=== PATIENT | female | born 1950 | race Caucasian/White ===

== ENCOUNTER 2018-06-19 08:00 | Inpatient (IN) | payer MEDICARE, OTHER ==
[2018-06-19 08:56] VITALS: BMI 32.4
--- NOTE | 2018-06-29 20:55 | HP ---
HISTORY OF PRESENT ILLNESS: The patient is a 68-year-old female with a long history of progressive d egenerative arthritis of both knees, left symptomatic more than right. She has had symptoms for 30 y ears, which have progressively gotten worse and now interfering with day-to-day activities. She has had progressive symptoms despite rest, restriction of activities, lifestyle adjustments, and previous cortisone injections, which were performed in [place] which provided minimal relief. She cannot ta ke NSAIDs due to gastric ulcers. Pain is now interfering with day-to-day activities including walkin g, getting dressed, and sleeping. PAST MEDICAL HISTORY: As noted above, the patient has history of peptic ulcers; pancreatic cyst; hyp othyroidism; supraventricular tachycardia, status post ablation in 2017; uterine prolapse; and hiatal hernia. CURRENT MEDICATIONS: Include levothyroxine, Ambien, Lipitor, Protonix, amitriptyline, valacyclovir, multivitamins, fish oil, gabapentin. ALLERGIES: She has no known allergies. FAMILY HISTORY: Otherwise, unremarkable. SOCIAL HISTORY: Otherwise, unremarkable. REVIEW OF SYSTEMS: Otherwise, unremarkable. PHYSICAL EXAMINATION: GENERAL: Reveals a healthy female. HEENT: Unremarkable. NECK: Supple. CHEST: Clear. HEART: Regular rate and rhythm. ABDOMEN: Soft, nontender. PELVIC: Deferred. RECTAL: Deferred. BREASTS: Deferred. EXTREMITIES: Pertinent findings related to her knees: There is mild valgus deformity bilaterally. There is no definite effusion. There is tenderness over the medial and lateral joint lines bilateral ly, left greater than right. There is crepitus with range of motion. Range of motion 0-135 degrees. There is no definite instability. Distal pulses are 1+. There is an antalgic gait. Neurovascular exam is intact. IMAGING: X-rays of both knees reveal [id number] collapse laterally on the left posterior loose bod ies. There are changes more advanced on the left knee. IMPRESSION: 1. Degenerative arthritis, both knees, left symptomatic more than right. 2. History of hypothyroidism. 3. Status post cardiac ablation. 4. History of peptic ulcer disease. PLAN: Left total knee replacement. She may eventually require staged right total knee replacement. The nature of the surgery, length of recovery, and potential complication such as infection, loss of motion, incomplete relief, delayed healing, neurovascular injury, thromboembolic phenomenon, possibl e transfusion, and need for revision have been discussed in detail.
[2018-06-30] MEDS ORDERED: CEFAZOLIN/Water 2 GM/20 ML SYRINGE ONE (07:45)
[2018-06-30] MEDS ORDERED: Vancomycin HCl 1.5 GM in Sodium Chloride 0.9% 250 ML 300 ML IVPB SCH ×2 (08:00→20:00)
[2018-06-30] MEDS ORDERED: Midazolam HCl 2 mg/2 ml Vial ONE (08:02)
[2018-06-30] MEDS ORDERED: Fentanyl 100 MCG/2 ML VIAL ONE ×3 (08:02→12:06)
[2018-06-30] MEDS ORDERED: traMADol HCl 50 MG TAB PO PRN ×2 (08:37→12:45)
[2018-06-30] MEDS ORDERED: Ketorolac Tromethamine 30 MG/ML VIAL IVP PRN (08:37)
[2018-06-30] MEDS ORDERED: HYDROcodone/Acetaminophen 10/325 mg Tablet PO PRN ×3 (08:37→12:45)
[2018-06-30] MEDS ORDERED: Fentanyl 100 MCG/2 ML VIAL IV PRN (08:37)
[2018-06-30] MEDS ORDERED: Ondansetron HCl/PF 4 MG/2 ML Vial IVP PRN ×3 (08:37→12:45)
[2018-06-30] MEDS ORDERED: Ropivacaine HCl/PF 250 ML in Premix Bag 1 BAG NERVE BLCK SCH (08:37)
[2018-06-30] MEDS ORDERED: Promethazine HCl 25 MG/ML VIAL IM PRN ×2 (08:37→10:32)
[2018-06-30] MEDS ORDERED: Bupivacaine/Epinephrine 0.25% 30 ML VIAL ONE (09:20)
[2018-06-30] MEDS ORDERED: Promethazine HCl 25 MG/ML VIAL SLOW IVP PRN ×2 (10:32→12:45)
[2018-06-30] MEDS ORDERED: Tranexamic Acid 1,000 MG in Sodium Chloride 0.9% 100 ML IVPB SCH ×2 (11:30→12:45)
[2018-06-30] MEDS ORDERED: Ropivacaine 0.2% HCl/PF (40 MG/20 ML VIAL) ONE (11:44)
[2018-06-30] MEDS ORDERED: Ropivacaine 0.5% HCl/PF (150 MG/30 ML VIAL) ONE (11:44)
[2018-06-30] MEDS ORDERED: Ondansetron HCl/PF 4 MG/2 ML Vial ONE (11:59)
[2018-06-30] MEDS ORDERED: ePHEDrine/0.9% NaCl/PF SYRINGE 50 mg/10 ml ONE (11:59)
[2018-06-30] MEDS ORDERED: PROPOFOL 200 MG/20 ML VIAL ONE (11:59)
[2018-06-30] MEDS ORDERED: Ketorolac Tromethamine 30 MG/ML VIAL ONE (11:59)
[2018-06-30] MEDS ORDERED: Lidocaine 1% PF 5 ML VIAL ONE (11:59)
[2018-06-30] MEDS ORDERED: Acetaminophen 1,000 MG in Premix Bag 1 BAG IVPB SCH (12:15)
--- NOTE | 2018-06-30 12:42 | OP ---
DATE OF PROCEDURE: 06/30/2018 SURGEON: Cesar Mills M.D. NEON SIGN MECHANIC: MOSES Jaramillo. ANESTHESIA: General plus adductor canal and sciatic nerve blocks. PREOPERATIVE DIAGNOSIS: Degenerative arthritis, left knee. POSTOPERATIVE DIAGNOSIS: Degenerative arthritis, left knee. PROCEDURES: Left total knee replacement with computer-assisted navigation with cemented Scottie Tria thlon components (#4 femoral component, #4 universal tibial baseplate with 9 mm CS plastic insert, an d A29 all plastic patellar component). NARRATIVE REPORT: After satisfactory anesthesia was induced in the supine position, sequential compr ession device was placed on the non-operative leg throughout the procedure. Left leg was then preppe d and draped in routine sterile fashion. Leg was elevated, exsanguinated with an Esmarch bandage, an d the tourniquet inflated to 300 mmHg. A gently curved medial parapatellar incision was made and car ried down to subcutaneous tissues. Bleeding points controlled with Bovie cautery. Medial parapatell ar arthrotomy was performed and portions of the fat pad were excised for exposure and the patella dis located laterally. There was marked degenerative arthritis of the knee, especially laterally with la rge areas of exposed bone. Meniscal remnants and osteophytes were removed. Using the appropriate gu ides and the Scottie pinless navigation system, the distal femoral and proximal tibial articular surf aces were excised with an oscillating saw to accept the trial components. The popliteus tendon was r eleased and portion of the IT band pie crusted to release the tight lateral structures, because of th e valgus deformity. There was good range of motion, good fit, and stability components. The patella r articular surface was excised to accept an all plastic A29 patellar component. There was good rang e of motion and good patellar tracking. The trial components were removed. The knee was copiously i rrigated with pulsatile lavage and the bony surfaces thoroughly cleaned and dried. The permanent com ponents were then cemented in a single stage using 1 package of cement premixed with 1 gram of tobram ycin powder. Excess cement was removed and there was again good fit and stability of the components. The knee was then copiously irrigated. The skin was injected with 30 mL of 0.25% Marcaine with epi nephrine. The medial retinaculum and quadriceps mechanism was closed with interrupted #2 Vicryl and a running #2 Quill. Subcutaneous tissues were closed with running 0 Quill suture and the skin closed with a running subcuticular 3-0 Monoderm and SurgiSeal skin adhesive. A sterile bulky compressive d ressing was applied. The tourniquet deflated after 73 minutes. The foot promptly pinked up. Sequen tial compression device was applied to her operated leg and she was awakened, taken to recovery room in stable condition. There were no apparent intraoperative complications. The estimated blood loss was less than 100 mL.
[2018-06-30] MEDS ORDERED: diphenhydrAMINE 25 MG CAP PO PRN (12:45)
[2018-06-30] MEDS ORDERED: Acetaminophen 325 MG TAB PO PRN (12:45)
[2018-06-30] MEDS ORDERED: Zolpidem Tartrate 5 MG TAB PO PRN (12:45)
[2018-06-30] MEDS ORDERED: Fentanyl 100 MCG/2 ML VIAL SLOW IVP PRN ×2 (12:45)
--- NOTE | 2018-06-30 13:46 | RAD ---
RADIOGRAPH LEFT KNEE TWO VIEWS: DATE: 06-30-18 TIME: 11:42 A.M. HISTORY: 68-year-old female with left knee pain. Status post-surgery. COMPARISON: None. FINDINGS: Resurfacing changes of the articular surfaces of the patella, distal femur, and tibial plateau. Metal lic prostheses cover the distal femur and tibial plateau. Subcutaneous emphysema anteriorly plus join t fluid. IMPRESSION: Very recently status post left total knee replacement arthroplasty. POS: [facility]
[2018-06-30] MEDS: Ketorolac Tromethamine 30 MG/ML VIAL IM SCH ×2 (14:24→23:00)
[2018-06-30] MEDS: Sodium Chloride 0.9% 1,000 ML IV SCH ×2 (14:30→20:29)
[2018-06-30] MEDS: CEFAZOLIN/Water 2 GM/20 ML SYRINGE SLOW IVP SCH (17:58)
--- NOTE | 2018-06-30 18:10 | PDOC.PN ---
- Subjective Encounter Start Date: 06/30/18 Encounter Start Time: 14:40 Pt seen for management of medical comorbidities including dyslipidemia. Denies chest pain, shortness of breath, fevers or chills. No nausea or vomiting. - Objective MAR Reviewed: Yes Vital Signs & Weight: Vital Signs (12 hours) Temp Pulse Resp BP Pulse Ox 06/30/18 12:50 97.5 F L 69 20 143/81 H 100 Weight Weight 207 lb Additional Labs: Labs reviewed by me Phys Exam - Physical Examination Obese HEENT: moist MMs Neck: supple Respiratory: clear to auscultation bilateral Cardiovascular: RRR Gastrointestinal: soft s/p left knee surgery Neurological: moves all 4 limbs Psychiatric: normal affect Dx/Plan (1) Dyslipidemia Code(s): E78.5 - HYPERLIPIDEMIA, UNSPECIFIED Status: Chronic Comment: continue statin (2) Hypothyroidism Code(s): E03.9 - HYPOTHYROIDISM, UNSPECIFIED Status: Chronic Comment: continue synthroid (3) Insomnia Code(s): G47.00 - INSOMNIA, UNSPECIFIED Status: Chronic Comment: Pt is on melatonin and PRN Ambien (4) Arthritis Code(s): M19.90 - UNSPECIFIED OSTEOARTHRITIS, UNSPECIFIED SITE Status: Chronic Comment: s/p left knee surgery - Plan PT/OT * . DVT prophylaxis and pain management per primary service. Add PRN IV hydralazine for blood pressure spikes. Review of Systems - Review of Systems Respiratory: negative: Cough, Shortness of Breath, Hemoptysis, SOB with Excertion, Pleuritic Pain, Wheezing Cardiovascular: negative: chest pain, palpitations, orthopnea, paroxysmal nocturnal dyspnea, edema, light headedness - Medications/Allergies Allergies/Adverse Reactions: Allergies Allergy/AdvReac Type Severity Reaction Status Date / Time No Known Allergies Allergy Verified 06/19/18 08:56 Medications: Current Medications Acetaminophen (Tylenol) 650 mg PO Q4H PRN PRN Reason: BERTRAND/ T > 101F; Mild Pain (1-3) Hydrocodone Bitart/Acetaminophen ([place] 10/325) 1 tab PO Q4H PRN PRN Reason: Pain (1-3) Hydrocodone Bitart/Acetaminophen ([place] 10/325) 2 tab PO Q4H PRN PRN Reason: PAIN (4-6) Aspirin (Ecotrin) 81 mg PO BID [facility] Atorvastatin Calcium (Lipitor) 40 mg PO DAILY [facility] Cefazolin Sodium (Ancef) 2 gm SLOW IVP 0200,1000,1800 [facility] Stop: 07/01/18 02:01 Last Admin: 06/30/18 17:58 Dose: 2 gm Diphenhydramine HCl (Benadryl) 25 mg PO Q6H PRN PRN Reason: Itching Fentanyl (Sublimaze) 50 mcg IV Q1H PRN PRN Reason: BREAKTHRU PAIN Ferrous Gluconate (Fergon) 324 mg PO BID [facility] Fish Oil (Fish Oil) 1,000 mg PO DAILY [facility] Vancomycin HCl 1.5 gm/ Sodium (Chloride) 300 mls @ 200 mls/hr IVPB ONCALL-OR [facility] Ropivacaine 250 ml/ Device 250 mls @ 10 mls/hr NERVE BLCK INF [facility] Sodium Chloride (Normal Saline 0.9%) 1,000 mls @ 100 mls/hr IV .Q10H [facility] Last Admin: 06/30/18 14:30 Dose: Not Given Vancomycin HCl 1.5 gm/ Sodium (Chloride) 300 mls @ 200 mls/hr IVPB 1999 [facility] Stop: 06/30/18 21:29 Iron/Minerals/Multivitamins (Theragran M) 1 tab PO DAILY [facility] Ketorolac Tromethamine (Toradol) 15 mg IM Q8HR [facility] Stop: 07/02/18 14:01 Last Admin: 06/30/18 14:24 Dose: 15 mg Levothyroxine Sodium (Synthroid) 75 mcg PO 0600 [facility] Melatonin (Melatonin) 9 mg PO HS [facility] Ondansetron HCl (Zofran) 4 mg IVP Q6H PRN PRN Reason: Nausea/Vomiting Glucosam/Chondr-Msm1 (/D3/C/Antonio) 0 each PO DAILY [facility] Promethazine HCl (Phenergan) 12.5 mg IM Q4H PRN PRN Reason: Nausea Promethazine HCl (Phenergan) 12.5 mg SLOW IVP Q4H PRN PRN Reason: Nausea/Vomiting Senna/Docusate Sodium (Senokot S) 2 tab PO BID [facility] Sodium Chloride (Flush - Normal Saline) 10 ml IVF PRN PRN PRN Reason: Saline Flush Tramadol HCl (Ultram) 50 mg PO Q6H PRN PRN Reason: Mild Pain (1-3) Tramadol HCl (Ultram) 100 mg PO Q6H PRN PRN Reason: Moderate Pain 4-6 Zolpidem Tartrate (Ambien) 5 mg PO HSPRN PRN PRN Reason: Insomnia
[2018-06-30] MEDS ORDERED: hydrALAZINE 20 MG/ML VIAL SLOW IVP PRN (18:15)
[2018-06-30] MEDS: HYDROcodone/Acetaminophen 10/325 mg Tablet PO PRN (19:02)
[2018-06-30] MEDS: Aspirin 81 mg Enteric Coated Tablet PO SCH (20:35)
[2018-06-30] MEDS: Melatonin 3 MG TAB PO SCH (20:40)
[2018-06-30] MEDS: Zolpidem Tartrate 5 MG TAB PO PRN (21:50)
[2018-07-01] MEDS: CEFAZOLIN/Water 2 GM/20 ML SYRINGE SLOW IVP SCH (01:13)
[2018-07-01] MEDS: HYDROcodone/Acetaminophen 10/325 mg Tablet PO PRN ×5 (01:14→21:07)
[2018-07-01] MEDS: Ketorolac Tromethamine 30 MG/ML VIAL IM SCH ×3 (05:26→21:08)
[2018-07-01] MEDS: Levothyroxine Sodium 75 MCG TAB PO SCH (05:26)
[2018-07-01 05:32] LABS: Hemoglobin 10.2 g/dL (12.0-16.0); Mean Corpuscular Hemoglobin 28.6 pg (27.0-31.0); Mean Corpuscular Volume 89.4 fL (78.0-98.0); Mean Platelet Volume 8.3 fL (7.4-10.4); Platelet Count 158 thou/uL (130-400); RBC Distribution Width 14.6 % (11.5-14.5); Red Blood Cell (RBC) Count 3.56 mill/uL (4.20-5.40); White Blood Cell (WBC) Count 6.4 thou/uL (4.8-10.8)
[2018-07-01] MEDS: Sodium Chloride 0.9% 1,000 ML IV SCH ×2 (08:43→18:20)
[2018-07-01] MEDS: Aspirin 81 mg Enteric Coated Tablet PO SCH ×2 (08:43→21:06)
[2018-07-01] MEDS: Ferrous Gluconate 324 MG TAB PO SCH ×2 (08:44→21:06)
[2018-07-01] MEDS: Atorvastatin Calcium 40 MG TAB PO SCH (08:44)
[2018-07-01] MEDS: Senokot S 8.6-50 MG TAB PO SCH ×2 (08:44→21:06)
[2018-07-01] MEDS: Fish Oil 1,000 MG CAP PO SCH (08:44)
[2018-07-01] MEDS: Multivitamin W/ Minerals 1 TAB PO SCH (08:45)
[2018-07-01] MEDS ORDERED: Glucosam/Chondr-Msm1/D3/C/Mang PO SCH (09:00)
[2018-07-01 13:38] LABS: Bilirubin Negative (Negative); Blood, Urine Moderate (Negative); Clarity CLEAR (Clear); Glucose, Urine (Dipstick) Negative (Negative); Leukocyte Negative (Negative); Nitrite Negative (Negative); Protein, Urine (Dipstick) Trace mg/dL (Neg-Trace); Specific Gravity, Urine 1.023 (1.002-1.036); Urobilinogen 0.2 mg/dL (0.2-1.0); pH, Urine 5.5 (5.0-9.0)
--- NOTE | 2018-07-01 14:52 | PDOC.PN ---
- Subjective Encounter Start Date: 07/01/18 Encounter Start Time: 09:20 Pt seen for followup re: dyslipidemia. Reports suprapubic discomfort. Did not sleep well. - Objective Vital Signs & Weight: Vital Signs (12 hours) Temp Pulse Resp BP Pulse Ox 07/01/18 12:00 97.8 F 68 18 128/81 100 07/01/18 08:00 98.4 F 71 16 108/69 96 07/01/18 04:00 98.5 F 74 16 122/73 95 Weight Admit Weight 207 lb Weight 207 lb I&O: 06/30/18 07/01/18 07/02/18 06:59 06:59 06:59 Intake Total 320 2280 Output Total 1100 Balance 320 1180 Result Diagrams: 07/01/18 05:12 Additional Labs: labs reviewed by me Phys Exam - Physical Examination Constitutional: NAD HEENT: moist MMs Neck: supple Respiratory: clear to auscultation bilateral Cardiovascular: RRR Gastrointestinal: soft, non-tender, positive bowel sounds Neurological: moves all 4 limbs Psychiatric: normal affect Dx/Plan (1) Dyslipidemia Code(s): E78.5 - HYPERLIPIDEMIA, UNSPECIFIED Status: Chronic Comment: on statin (2) Hypothyroidism Code(s): E03.9 - HYPOTHYROIDISM, UNSPECIFIED Status: Chronic Comment: on synthroid (3) Insomnia Code(s): G47.00 - INSOMNIA, UNSPECIFIED Status: Chronic Comment: continue melatonin and PRN Ambien (4) Arthritis Code(s): M19.90 - UNSPECIFIED OSTEOARTHRITIS, UNSPECIFIED SITE Status: Chronic Comment: s/p left knee surgery - Plan * . arreola catheter appears to be draining well. Check urinalysis to rule out UTI. Review of Systems - Review of Systems Respiratory: negative: Cough, Shortness of Breath, SOB with Excertion, Pleuritic Pain, Wheezing Cardiovascular: negative: chest pain, palpitations, orthopnea, paroxysmal nocturnal dyspnea, edema, light headedness Gastrointestinal: Abdominal Pain - Medications/Allergies Allergies/Adverse Reactions: Allergies Allergy/AdvReac Type Severity Reaction Status Date / Time No Known Allergies Allergy Verified 06/19/18 08:56 Medications: Current Medications Acetaminophen (Tylenol) 650 mg PO Q4H PRN PRN Reason: BERTRAND/ T > 101F; Mild Pain (1-3) Hydrocodone Bitart/Acetaminophen ([place] 10/325) 1 tab PO Q4H PRN PRN Reason: Pain (1-3) Hydrocodone Bitart/Acetaminophen ([place] 10/325) 2 tab PO Q4H PRN PRN Reason: PAIN (4-6) Last Admin: 07/01/18 10:09 Dose: 2 tab Aspirin (Ecotrin) 81 mg PO BID [facility] Last Admin: 07/01/18 08:43 Dose: 81 mg Atorvastatin Calcium (Lipitor) 40 mg PO DAILY [facility] Last Admin: 07/01/18 08:44 Dose: 40 mg Diphenhydramine HCl (Benadryl) 25 mg PO Q6H PRN PRN Reason: Itching Fentanyl (Sublimaze) 50 mcg IV Q1H PRN PRN Reason: BREAKTHRU PAIN Ferrous Gluconate (Fergon) 324 mg PO BID [facility] Last Admin: 07/01/18 08:44 Dose: 324 mg Fish Oil (Fish Oil) 1,000 mg PO DAILY [facility] Last Admin: 07/01/18 08:44 Dose: 1,000 mg Hydralazine HCl (Apresoline) 10 mg SLOW IVP Q6H PRN PRN Reason: SBP Greater Than 170 Vancomycin HCl 1.5 gm/ Sodium (Chloride) 300 mls @ 200 mls/hr IVPB ONCALL-OR [facility] Ropivacaine 250 ml/ Device 250 mls @ 10 mls/hr NERVE BLCK INF [facility] Last Admin: 07/01/18 12:21 Dose: 250 mls Sodium Chloride (Normal Saline 0.9%) 1,000 mls @ 100 mls/hr IV .Q10H [facility] Last Admin: 07/01/18 08:43 Dose: Not Given Iron/Minerals/Multivitamins (Theragran M) 1 tab PO DAILY [facility] Last Admin: 07/01/18 08:45 Dose: 1 tab Ketorolac Tromethamine (Toradol) 15 mg IM Q8HR [facility] Stop: 07/02/18 14:01 Last Admin: 07/01/18 14:42 Dose: 15 mg Levothyroxine Sodium (Synthroid) 75 mcg PO 0600 [facility] Last Admin: 07/01/18 05:26 Dose: 75 mcg Melatonin (Melatonin) 9 mg PO HS [facility] Last Admin: 06/30/18 20:40 Dose: 9 mg Ondansetron HCl (Zofran) 4 mg IVP Q6H PRN PRN Reason: Nausea/Vomiting Last Admin: 07/01/18 09:55 Dose: 4 mg Promethazine HCl (Phenergan) 12.5 mg IM Q4H PRN PRN Reason: Nausea Promethazine HCl (Phenergan) 12.5 mg SLOW IVP Q4H PRN PRN Reason: Nausea/Vomiting Senna/Docusate Sodium (Senokot S) 2 tab PO BID [facility] Last Admin: 07/01/18 08:44 Dose: 2 tab Sodium Chloride (Flush - Normal Saline) 10 ml IVF PRN PRN PRN Reason: Saline Flush Last Admin: 07/01/18 14:44 Dose: 10 ml Tramadol HCl (Ultram) 50 mg PO Q6H PRN PRN Reason: Mild Pain (1-3) Last Admin: 07/01/18 11:27 Dose: 50 mg Tramadol HCl (Ultram) 100 mg PO Q6H PRN PRN Reason: Moderate Pain 4-6 Zolpidem Tartrate (Ambien) 5 mg PO HSPRN PRN PRN Reason: Insomnia Last Admin: 06/30/18 21:50 Dose: 5 mg
[2018-07-01] MEDS: Zolpidem Tartrate 5 MG TAB PO PRN (21:23)
[2018-07-01] MEDS: Melatonin 3 MG TAB PO SCH (21:24)
[2018-07-01] MEDS: traMADol HCl 50 MG TAB PO PRN (23:02)
[2018-07-02] MEDS: HYDROcodone/Acetaminophen 10/325 mg Tablet PO PRN ×2 (01:47→13:49)
[2018-07-02] MEDS: Sodium Chloride 0.9% 1,000 ML IV SCH (04:24)
[2018-07-02] MEDS: Levothyroxine Sodium 75 MCG TAB PO SCH (05:23)
[2018-07-02] MEDS: traMADol HCl 50 MG TAB PO PRN (05:25)
[2018-07-02] MEDS: Ketorolac Tromethamine 30 MG/ML VIAL IM SCH ×2 (05:25→13:48)
[2018-07-02] MEDS: Atorvastatin Calcium 40 MG TAB PO SCH (08:35)
[2018-07-02] MEDS: Senokot S 8.6-50 MG TAB PO SCH (08:35)
[2018-07-02] MEDS: Multivitamin W/ Minerals 1 TAB PO SCH (08:35)
[2018-07-02] MEDS: Aspirin 81 mg Enteric Coated Tablet PO SCH (08:36)
[2018-07-02] MEDS: Ferrous Gluconate 324 MG TAB PO SCH (08:36)
[2018-07-02] MEDS: Fish Oil 1,000 MG CAP PO SCH (08:36)
[2018-07-02 12:06] VITALS: TEMP 97.7
[2018-07-02 13:53] VITALS: BP 138/84
== END 2018-07-02 14:10 | disposition home or self-care (01) | DRG 470 ==
LOC: SJJU 06-30 06:51
PROVIDERS: ADMIT Orthopaedic Surgery; ATTEND Orthopaedic Surgery
PROC: 0SRD0J9 Replacement of Left Knee Joint with Synthetic Substitute, Cemented, Open Approach (ICD-10-PCS; principal; 2018-06-30)
PROC: 8E0YXBZ Computer Assisted Procedure of Lower Extremity (ICD-10-PCS; 2018-06-30)
DX: M17.0 Bilateral primary osteoarthritis of knee (principal); E03.9 Hypothyroidism, unspecified; K27.9 Peptic ulcer, site unspecified, unspecified as acute or chronic, without hemorrhage or perforation; E78.5 Hyperlipidemia, unspecified; G47.00 Insomnia, unspecified
CPT/HCPCS: 36415; 81003; 85027; C1713; C1776; G8978-GP-CL; G8979-GP-CJ; J0131; J1885; J2001; J2250; J2405; J2704; J2795; J3010; J3370; J7050

== ENCOUNTER 2018-06-19 08:27 | Outpatient (CLI) | payer MEDICARE, OTHER ==
[2018-06-19 10:29] LABS: Bilirubin Negative (Negative); Blood, Urine Negative (Negative); Clarity CLEAR (Clear); Glucose, Urine (Dipstick) Negative (Negative); Leukocyte Negative (Negative); Nitrite Negative (Negative); Protein, Urine (Dipstick) Negative (Neg-Trace); Specific Gravity, Urine 1.023 (1.002-1.036); Urobilinogen 0.2 mg/dL (0.2-1.0)
[2018-06-19 10:35] LABS: Bacteria/HPF None Seen HPF (None Seen); Hyaline Casts/LPF 0-3 HYALINE CAST LPF (0-3 Hyaline); Pathc Cast-AUWi Flag 0.43 (0-2.49); RBC/HPF 0-3 HPF (0-3); Squamous Epithelial 0-3 HPF (0-3)
--- NOTE | 2018-06-22 17:36 | EKG ---
Test Reason : Blood Pressure : / mmHG Vent. Rate : 075 BPM Atrial Rate : 075 BPM P-R Int : 200 ms QRS Dur : 094 ms QT Int : 368 ms P-R-T Axes : 057 051 059 degrees QTc Int : 410 ms Sinus rhythm with marked sinus arrhythmia Possible Left atrial enlargement Borderline ECG No previous ECGs available Confirmed by LEONARD OCONNOR (2) on 06/22/2018 5:35:58 PM Referred By: EVELYNE Confirmed By:LEONARD OCONNOR
== END 2018-06-19 08:28 | disposition home or self-care (01) ==
LOC: LABBT 08:27
PROVIDERS: ATTEND Orthopaedic Surgery
DX: Z01.818 Encounter for other preprocedural examination (principal); M17.0 Bilateral primary osteoarthritis of knee
CPT/HCPCS: 81001; 87081; 87086; 93005; 93010

== ENCOUNTER 2018-06-24 13:32 | Outpatient (CLI) | payer MEDICARE, OTHER ==
[2018-06-24 14:00] LABS: #Eosinphils 0.1 thou/uL (0.0-0.7); #Lymphocytes 1.2 thou/uL (1.20-3.40); #Monocytes 0.5 thou/uL (0.11-0.59); #Neutrophils 4.6 thou/uL (1.40-6.50); %Basophils 0.7 % (0.0-1.0); %Eosinophils 2.2 % (0.0-10.0); %Lymphocytes 18.6 % (21.0-51.0); %Monocytes 8.2 % (0.0-10.0); %Neutrophils 70.3 % (42.0-75.0); Hemoglobin 13.1 g/dL (12.0-16.0); Mean Corpuscular HGB CONC 32.6 g/dL (32.0-36.0); Mean Corpuscular Hemoglobin 28.8 pg (27.0-31.0); Mean Corpuscular Volume 88.4 fL (78.0-98.0); Mean Platelet Volume 8.3 fL (7.4-10.4); Platelet Count 234 thou/uL (130-400); RBC Distribution Width 14.8 % (11.5-14.5); Red Blood Cell (RBC) Count 4.54 mill/uL (4.20-5.40); White Blood Cell (WBC) Count 6.6 thou/uL (4.8-10.8)
[2018-06-24 14:06] LABS: Prothrombin Time 13.5 SEC (12.0-14.7)
[2018-06-24 14:19] LABS: Anion Gap 11 mmol/L (10-20); BUN (Urea Nitrogen) 15 mg/dL (9.8-20.1); Calc. Creatinine Clearance 0 mL/min (70-130); Calcium 9.4 mg/dL (7.8-10.44); Carbon Dioxide 26 mmol/L (23-31); Chloride 103 mmol/L (98-107); Estimated GFR-MDRD 58; Glucose 98 mg/dL (80-115); Potassium 4.6 mmol/L (3.5-5.1); Sodium 135 mmol/L (136-145)
== END 2018-06-24 13:33 | disposition home or self-care (01) ==
LOC: LABBT 13:32
PROVIDERS: ATTEND Orthopaedic Surgery
DX: Z01.812 Encounter for preprocedural laboratory examination (principal); M17.0 Bilateral primary osteoarthritis of knee
CPT/HCPCS: 80048; 85025; 85610; 86850; 86900; 86901

== ENCOUNTER 2018-11-24 01:38 | Outpatient (CLI) | payer MEDICARE, OTHER ==
[2018-11-24 12:58] LABS: #Basophils 0.1 thou/uL (0.0-0.2); #Eosinphils 0.1 thou/uL (0.0-0.7); #Lymphocytes 1.5 thou/uL (1.20-3.40); #Monocytes 0.5 thou/uL (0.11-0.59); %Basophils 1.2 % (0.0-1.0); %Eosinophils 2.4 % (0.0-10.0); %Lymphocytes 29.6 % (21.0-51.0); %Monocytes 9.4 % (0.0-10.0); %Neutrophils 57.4 % (42.0-75.0); Hemoglobin 13.2 g/dL (12.0-16.0); Mean Corpuscular HGB CONC 31.6 g/dL (32.0-36.0); Mean Corpuscular Hemoglobin 26.7 pg (27.0-31.0); Mean Corpuscular Volume 84.6 fL (78.0-98.0); Mean Platelet Volume 8.8 fL (7.4-10.4); Platelet Count 188 thou/uL (130-400); RBC Distribution Width 13.8 % (11.5-14.5); Red Blood Cell (RBC) Count 4.94 mill/uL (4.20-5.40); White Blood Cell (WBC) Count 5.2 thou/uL (4.8-10.8)
[2018-11-24 13:11] LABS: ALT (SGPT) 16 U/L (8-55); AST (SGOT) 23 U/L (5-34); Albumin 4.5 g/dL (3.4-4.8); Alkaline Phosphatase 82 U/L (40-150); Anion Gap 13 mmol/L (10-20); BUN (Urea Nitrogen) 14 mg/dL (9.8-20.1); Bilirubin, Total 1.2 mg/dL (0.2-1.2); Calc. Creatinine Clearance 0 mL/min (70-130); Calcium 9.7 mg/dL (7.8-10.44); Carbon Dioxide 24 mmol/L (23-31); Chloride 104 mmol/L (98-107); Estimated GFR-MDRD 72; Globulin 2.7 g/dL (2.4-3.5); Glucose 80 mg/dL (80-115); Protein, Total 7.2 g/dL (6.0-8.3); Sodium 137 mmol/L (136-145)
== END 2018-11-24 01:39 | disposition home or self-care (01) ==
LOC: LABBT 01:38
PROVIDERS: ATTEND Obstetrics & Gynecology
DX: Z01.818 Encounter for other preprocedural examination (principal); N81.89 Other female genital prolapse; N81.10 Cystocele, unspecified; N81.6 Rectocele
CPT/HCPCS: 80053; 85025; 86850; 86900; 86901; 93005; 93010

== ENCOUNTER 2018-11-25 06:04 | Inpatient (IN) | payer MEDICARE, OTHER ==
--- NOTE | 2018-11-24 07:33 | HP ---
DATE OF PLANNED SURGERY: 11/25/2018. HISTORY OF PRESENT ILLNESS: Ms. Boyd is a 68-year-old white female G4, P3, A1, who has been having increasing pelvic prolapse symptoms over the past 6 months. She reports difficulty emptying her bladder due to the vaginal bulge and also notices very uncomfortable feeling in the vagina. She has no urinary incontinence. She has to bend forward at times to help relieve her bladder fullness. PAST MEDICAL HISTORY: Hypothyroidism, hyperlipidemia, and insomnia. PAST SURGICAL HISTORY: She has had a history of cardiac ablation for SVT, which has been successful. She has also had a colonoscopy and total knee replacement. ALLERGIES: SHE HAS NO KNOWN DRUG ALLERGIES. CURRENT MEDICATIONS: 1. Amitriptyline 25 mg at bedtime. 2. Atorvastatin 40 mg daily. 3. Fexofenadine 180 mg daily. 4. Levoxyl 75 mcg daily. 5. Lyrica 75 mg at bedtime p.r.n. 6. Nystatin/triamcinolone topical cream. 7. She takes omega-3. 8. DHA. 9. Valacyclovir 1 g tablet daily as needed. 10. Vanicream topical. 11. Zolpidem 10 mg at bedtime for insomnia. SOCIAL HISTORY: She is a nonsmoker. No excessive alcohol use. She is retired . PHYSICAL EXAMINATION: VITAL SIGNS: Height 5 feet 7 inches, weight 212 with a BMI of 33.2. Blood pressure 120/74, pulse 68, and respirations 18. HEENT: Within normal limits. CHEST: Clear to auscultation. HEART: Regular rate and rhythm. S1 and S2 heart sounds. No murmurs, rubs, or gallops. ABDOMEN: Soft, nontender, and nondistended. No palpable masses. No hepatosplenomegaly. PELVIC: Vulva and vagina had no lesions. Urethra had no lesions. Vaginal cystocele was appreciated with grade 3, with also a grade 3 rectocele. No cervical lesions were noted. She has a grade 2 to 3 uterine prolapse. There were no adnexal masses. ASSESSMENT: In summary, this is a 68-year-old white female with symptomatic pelvic prolapse including grade 3 cystocele, grade 2 to 3 uterine prolapse, and grade 3 rectocele. PLAN: Plan is to proceed with robotic total laparoscopic hysterectomy with bilateral salpingo-oophorectomy with the uterosacral vaginal vault suspension and anterior and posterior repair. Cystoscopy will be performed intraoperatively. Risks and benefits of surgery have been discussed in detail and she is set for 11/25/2018. Job ID: [id number]
[2018-11-24 11:31] VITALS: BMI 32.8
[2018-11-25] MEDS ORDERED: Famotidine/PF 20 mg/2ml Vial ONE (06:13)
[2018-11-25] MEDS ORDERED: CeleCOXIB 100 MG CAP ONE (06:13)
[2018-11-25] MEDS ORDERED: Gabapentin 300 MG CAP ONE (06:13)
[2018-11-25] MEDS ORDERED: Fentanyl 250 MCG/5 ML VIAL ONE (06:51)
[2018-11-25] MEDS ORDERED: Lidocaine 0.5%/Epinephrine 1:200,000 50 ml Vial ONE (06:53)
[2018-11-25] MEDS ORDERED: Bupivacaine HCl 0.5%/Epinephrine 1:200,000/PF 30 ml Vial ONE (06:53)
[2018-11-25] MEDS ORDERED: Lidocaine 1% w/Epinephrine 1:100K 20 ML VIAL ONE (07:00)
[2018-11-25] MEDS ORDERED: Midazolam HCl 2 mg/2 ml Vial ONE (07:16)
[2018-11-25] MEDS ORDERED: Meperidine HCl/PF 25 MG/ML VIAL SLOW IVP PRN (09:47)
[2018-11-25] MEDS ORDERED: Ondansetron HCl/PF 4 MG/2 ML Vial IVP PRN (09:47)
[2018-11-25] MEDS ORDERED: Promethazine HCl 25 MG/ML VIAL SLOW IVP PRN (09:47)
[2018-11-25] MEDS ORDERED: Promethazine HCl 25 MG/ML VIAL IM PRN ×2 (09:47→12:28)
[2018-11-25] MEDS ORDERED: Furosemide 20 MG/2 ML VIAL ONE (10:00)
[2018-11-25] MEDS ORDERED: Zolpidem Tartrate 5 MG TAB PO PRN (11:27)
[2018-11-25] MEDS ORDERED: Acetaminophen 1,000 MG in Premix Bag 1 BAG IVPB SCH (12:00)
[2018-11-25] MEDS ORDERED: diphenhydrAMINE 25 MG CAP PO PRN (12:28)
[2018-11-25] MEDS ORDERED: Ondansetron PF 4 MG/2 ML Vial IVP PRN (12:28)
[2018-11-25] MEDS ORDERED: Morphine 4 MG/ML VIAL SLOW IVP PRN (12:28)
[2018-11-25] MEDS: Lactated Ringer's 1,000 ML IV SCH ×2 (12:43→21:26)
--- NOTE | 2018-11-25 14:44 | OP ---
DATE OF PROCEDURE: 11/25/2018 PREOPERATIVE DIAGNOSES: A 68-year-old white female G3, P3, with symptomatic pelvic organ prolapse with grade 3 cystocele, grade 2 uterine prolapse, and grade 3 rectocele. POSTOPERATIVE DIAGNOSES: A 68-year-old white female G3, P3, with symptomatic pelvic organ prolapse with grade 3 cystocele, grade 2 uterine prolapse, and grade 3 rectocele. PROCEDURES PERFORMED: 1. Robotic total laparoscopic hysterectomy with bilateral salpingo-oophorectomy. 2. Uterosacral vaginal vault suspension. 3. Anterior and posterior repair. 4. Postprocedure cystoscopy. PASTE UP COPY CAMERA OPERATOR SURGEON: Francy Nagel MD ANESTHESIA: General endotracheal. ESTIMATED BLOOD LOSS: 25 mL. COMPLICATIONS: None. COUNTS: Correct x2. ANTIBIOTICS: 2 g Ancef on-call to OR with protocol. FINDINGS: 1. Normal-appearing bilateral fallopian tubes, ovaries, and uterus with significant prolapse noted. 2. Clear urine present in Liao catheter postprocedure and cystoscopy of the bladder postprocedure showed intact bladder mucosa with no evidence of injury or suture placement. Bilateral ureteral orifices showed efflux of urine postprocedure. DISPOSITION: Recovery room, stable. DESCRIPTION OF PROCEDURE: The patient previously received informed consent in regard to surgery. She was taken back to the operating room, where she received a general endotracheal anesthetic agent without complications. She was placed in supine position, prepped and draped in usual sterile fashion. At this time, the patient in the dorsal lithotomy position had been prepped and Liao catheter was placed. A sidearm speculum was placed in the vagina. Anterior lip of the cervix was grasped with single-tooth tenaculum. The uterus sounded to 7 cm and a size 6 cm GENOVEVA uterine manipulator with a 3.5 cm cervical cup was then fixed. Attention was then turned to the abdomen, where perspective trocar sites were infiltrated with 0.5% Marcaine with epinephrine. A 12 mm supraumbilical incision was made. Veress needle was entered in the peritoneal cavity with the patient's pressure less than 5 mm. Abdomen was insufflated with the patient's pressure of 15 approximately 4.5 L of carbon dioxide gas. A 12 mm trocar was then placed through the supraumbilical incision site. The robotic laparoscope was introduced through the trocar sleeve confirming proper entry. Additional bilateral lower quadrant 8 mm robotic trocars were placed under laparoscopic guidance along with the right upper quadrant 11 mm paperhanger assistant port. The patient was placed in Trendelenburg position and the robot was docked. I then proceeded to carry out the procedure from the operative console site. The uterus was elevated by my paperhanger assistant with the GENOVEVA uterine manipulator. This demarcated the uterosacral ligament and its position in relationship to the bilateral ureteral pathways. The ureters were both seen in the each pelvic sidewall and good distance noted from the uterosacral ligaments. The peritoneum overlying the uterosacral ligament on the left was elevated and the lateral side was then incised and this was dissected a window under direct visualization up towards the uterosacral insertion in the uterus and also dissecting the ureter more lateral away from the uterosacral site. This was repeated in likewise fashion on the right side. We then proceeded to, my paperhanger assistant grasped the left IP ligament. I coagulated the infundibulopelvic ligament close to the ovaries and then transecting this with monopolar scissors. Serial coagulation of broad ligament on the left side of the uterus was carried on to the left round ligament was reached. It was coagulated and transected with monopolar scissors. The anterior leaf of the broad ligament was entered. The vesicouterine peritoneum was incised in a layering technique dissecting the bladder atraumatically past the cervical vaginal angle. The uterine vessels were skeletonized on the left side, coagulated internal cervical os. This was then repeated in likewise fashion on the right side of the uterus with the right IP ligament, coagulated, transected, and the right broad ligament pedicles were coagulated and transected again to the right round ligament, coagulated transecting this and then incising the vesicouterine peritoneum in a layering technique dissecting the bladder well passed the cervical vaginal angle and skeletonized uterine vessels with coagulation internal cervical os. We then did the water testing of tightness of the bladder, it was intact. Anterior colpotomy was then started from 12 to 3 and 12 to 9 o'clock position, completing from the 6 to 9 to 6 to 3 o'clock position over the cervical cup. The specimen was delivered in the vaginal vault. A monopolar scissors was switched out with a Oswaldo needle wagon driver. My paperhanger assistant passed through a Stratafix suture. The vaginal cuff was closed in 2 layer closure starting from the right angle SPECT to the left angle back towards the midline with good approximation. Hemostasis of the cuff line. Then, my paperhanger assistant removed the Stratafix needle intact and then a 0 Ethibond suture was placed again in the pelvis by my paperhanger assistant. The left uterosacral ligament was identified in the previous made window. The Ethibond suture was brought through this defect and then the posterior vaginal cuff and anterior vaginal cuff was then reefed across with the Ethibond suture, plicating this back and tying this back towards the left uterosacral ligament, elevating the vaginal cuff. The needle and suture were removed by my paperhanger assistant. Then, the right uterosacral ligament again was identified, where the defect had been made in new stitch of 0 Ethibond was placed. We again sutured this area in the right side of the vaginal angle and posterior and anteriorly was plicated and then again in the vaginal cuff was elevated with tying down of the suture. This suture was removed intact again. Attention was then turned to the vaginal portion of the surgery. The robot was undocked. Trocar sleeves were removed, trocar sites were closed, and 0 Vicryl suture was placed in the umbilical defect with good approximation. Dermabond closed the trocar sites. Cystoscopy was then performed with a 70 degree scope as the bladder was filled. Ureteral efflux of urine was noted on the left ureter readily. The right ureter, we waited for approximately 5 minutes and then some Lasix was given 10 mg IV. Then, we saw good copious efflux of urine from the right ureteral orifice also. The mucosa of the bladder was intact with no evidence of any injury or suture placement seen on inspection of the bladder. Liao catheter was then reinserted and the anterior repair was carried out. A weighted speculum was placed in the vagina. The anterior lip of the sides of the vaginal mucosa was grasped with Allis clamps. The anterior vaginal mucosa was infiltrated with 1% lidocaine with epinephrine. A vertical midline incision of the anterior vaginal mucosa was made up towards the urethral meatus. The edges of the vaginal cuff were grasped with Allis clamps for counter traction. The endopelvic fascia was then dissected bluntly and sharply reducing the cystocele. The cystocele was then repaired with 3 plication of the endopelvic fascia around the midline with mattress sutures with 2-0 Vicryl sutures, reducing the cystocele in its entirety. The anterior vaginal cuff was then closed with interrupted [id number] sutures of 2-0 Vicryl incorporating some endopelvic fascia to rid the space for hemostasis. Posterior repair was then carried out and after the vaginal introitus was grasped with Allis clamps at 4 and 8 o'clock position, the posterior vaginal mucosa was infiltrated again with 1% lidocaine with epinephrine. A vertical midline incision was made up toward the cuff line with Metzenbaum scissors and the edges of the mucosa were grasped bilaterally with Allis clamps. Again, the rectocele defect was dissected both sharply and bluntly with Metzenbaum scissors. Once the endopelvic fascial defect had been dissected down and the rectocele was reduced and an additional glove was placed and the rectal exam was performed and this delineated the fascial tears. Two Allis clamps were placed on these tears and then, the dirty glove was removed. A 0 Vicryl suture was utilized then to plicate the endopelvic fascial defects in a point site fix technique, repairing the endopelvic fascia defect with [id number] sutures of 0 Vicryl. Once this had been accomplished, then the posterior vaginal mucosa was closed with 2-0 Vicryl suture with [id number] stitch fashion incorporating the endopelvic tissue ridding the space. Hemostasis was confirmed. The vagina was then packed with a moistened Kerlix. The patient was awakened from anesthesia and transferred to recovery room in stable condition. Job ID: [id number]
[2018-11-25] MEDS ORDERED: ePHEDrine 50 MG/ML VIAL ONE (14:50)
[2018-11-25] MEDS ORDERED: Lidocaine 1% PF 5 ML VIAL ONE (14:50)
[2018-11-25] MEDS ORDERED: Dexamethasone 20 MG/5 ML VIAL ONE (14:50)
[2018-11-25] MEDS ORDERED: PROPOFOL 200 MG/20 ML VIAL ONE (14:50)
[2018-11-25] MEDS ORDERED: Rocuronium Bromide 10 MG/ML (10ML VIAL) ONE (14:50)
[2018-11-25] MEDS ORDERED: Ondansetron PF 4 MG/2 ML Vial ONE (14:50)
[2018-11-25] MEDS: traMADol HCl 50 MG TAB PO PRN ×2 (16:15→22:12)
[2018-11-25] MEDS: Acetaminophen 500 MG TAB PO SCH (18:38)
[2018-11-25] MEDS ORDERED: Docusate Calcium (SURFAK) 240 MG CAP PO SCH (21:00)
[2018-11-25] MEDS: Pregabalin 75 MG CAP PO SCH (21:21)
[2018-11-25] MEDS: Atorvastatin Calcium 40 MG TAB PO SCH (21:21)
[2018-11-25] MEDS: Melatonin 3 MG TAB PO SCH (21:22)
[2018-11-25] MEDS: Simethicone Chewable 80 MG TAB PO PRN (21:22)
[2018-11-26] MEDS: Acetaminophen 500 MG TAB PO SCH ×2 (00:18→06:03)
[2018-11-26] MEDS: Lactated Ringer's 1,000 ML IV SCH ×3 (05:04→22:52)
[2018-11-26] MEDS: Levothyroxine Sodium 75 MCG TAB PO SCH (06:03)
[2018-11-26 07:02] LABS: Hemoglobin 10.8 g/dL (12.0-16.0); Mean Corpuscular HGB CONC 31.5 g/dL (32.0-36.0); Mean Corpuscular Hemoglobin 26.9 pg (27.0-31.0); Mean Corpuscular Volume 85.3 fL (78.0-98.0); Mean Platelet Volume 9.1 fL (7.4-10.4); Platelet Count 156 thou/uL (130-400); RBC Distribution Width 13.7 % (11.5-14.5); White Blood Cell (WBC) Count 7.7 thou/uL (4.8-10.8)
--- NOTE | 2018-11-26 08:27 | PDOC.EVN ---
Event Note - Event Note Event Note: Tolerating diet. Voiding trial today. O:AFVSS hct 34.1% 1150 ml u/o abdomen soft/non tender trochar sites c/d i A/P post op day 1 from robotic tlh/bso uterosacral vaginal vault suspension with A&P. voiding trials.
[2018-11-26] MEDS ORDERED: Zolpidem Tartrate 5 MG TAB PO PRN (08:29)
[2018-11-26] MEDS ORDERED: [UNRECOGNIZED DRUG - MIXTURE] PO SCH (09:00)
[2018-11-26] MEDS: traMADol HCl 50 MG TAB PO PRN ×3 (09:16→21:24)
[2018-11-26] MEDS: Multivit, Therapeutic 1 TAB PO SCH (09:17)
[2018-11-26] MEDS: Fish Oil 1,000 MG CAP PO SCH (09:18)
[2018-11-26] MEDS: Simethicone Chewable 80 MG TAB PO PRN ×2 (14:40→20:07)
[2018-11-26] MEDS ORDERED: Docusate Calcium (SURFAK) 240 MG CAP PO SCH (15:00)
[2018-11-26] MEDS: Acetaminophen 325 MG TAB PO PRN (18:27)
[2018-11-26] MEDS: Docusate Calcium (SURFAK) 240 MG CAP PO SCH (20:02)
[2018-11-26] MEDS: Pregabalin 75 MG CAP PO SCH (20:02)
[2018-11-26] MEDS: Atorvastatin Calcium 40 MG TAB PO SCH (20:02)
[2018-11-26] MEDS: Melatonin 3 MG TAB PO SCH (20:04)
[2018-11-27] MEDS: Levothyroxine Sodium 75 MCG TAB PO SCH (05:53)
[2018-11-27 06:08] LABS: Hemoglobin 11.1 g/dL (12.0-16.0); Mean Corpuscular HGB CONC 31.4 g/dL (32.0-36.0); Mean Corpuscular Volume 85.9 fL (78.0-98.0); Mean Platelet Volume 8.8 fL (7.4-10.4); Platelet Count 154 thou/uL (130-400); RBC Distribution Width 13.9 % (11.5-14.5); Red Blood Cell (RBC) Count 4.12 mill/uL (4.20-5.40); White Blood Cell (WBC) Count 5.5 thou/uL (4.8-10.8)
[2018-11-27 08:05] VITALS: BP 139/77; TEMP 98.3
--- NOTE | 2018-11-27 08:18 | PDOC.EVN ---
Event Note - Event Note Event Note: Voiding well. Tolerating diet. Had BM O:AFVSS. Pathology benign. abdomen soft non distended. A/PDoing well post op day 2 from robotic tlh/bso with uterosacral vaginal vault suspension and a&p. Successful voiding trials. d/c home. F/u 3 weeks.
--- NOTE | 2018-11-27 09:30 | DIS ---
DATE OF ADMISSION: 11/25/2018 DATE OF DISCHARGE: 11/27/2018 DIAGNOSES: Symptomatic grade 3 cystocele, rectocele, and grade 2 uterine prolapse. SURGERY PERFORMED: Robotic total laparoscopic hysterectomy, bilateral salpingo-oophorectomy with uterosacral vaginal vault suspension followed by anterior and posterior repair and postoperative cystoscopy. SUMMARY OF HOSPITAL COURSE: Ms. Boyd is a 68-year-old white female with symptomatic pelvic prolapse. She underwent surgical repair for this on 11/25. Postoperatively, the patient has done well. She is remained afebrile with stable vital signs. Postoperative hematocrit was 34%. She began voiding trials on postop day #1 and had minimal post void residuals of less than 50. Her pain was adequately controlled with p.o. tramadol and ibuprofen as indicated. She was discharged the morning of postop day #2. She is to follow up in 3 weeks as scheduled. Discharge medications will be tramadol 50 q.6 hours p.r.n. pain, [id number] ibuprofen as indicated, and Colace 100 mg b.i.d. Pathology reviewed was benign with findings of benign uterine leiomyoma and adenomyosis of the uterus. Adnexa had no pathologic disease. Job ID: [id number]
[2018-11-27] MEDS: Fish Oil 1,000 MG CAP PO SCH (09:58)
[2018-11-27] MEDS: traMADol HCl 50 MG TAB PO PRN (09:59)
[2018-11-27] MEDS: Multivit, Therapeutic 1 TAB PO SCH (10:00)
[2018-11-27] MEDS: Docusate Calcium (SURFAK) 240 MG CAP PO SCH (10:00)
[2018-11-27] MEDS: Acetaminophen 325 MG TAB PO PRN (11:09)
== END 2018-11-27 11:40 | disposition home or self-care (01) | DRG 743 ==
LOC: SDC 06:04 → 3SE 12:30
PROVIDERS: ADMIT Obstetrics & Gynecology; ATTEND Obstetrics & Gynecology
PROC: 0UT94ZZ Resection of Uterus, Percutaneous Endoscopic Approach (ICD-10-PCS; principal; 2018-11-25)
PROC: 0UT74ZZ Resection of Bilateral Fallopian Tubes, Percutaneous Endoscopic Approach (ICD-10-PCS; 2018-11-25)
PROC: 0UT24ZZ Resection of Bilateral Ovaries, Percutaneous Endoscopic Approach (ICD-10-PCS; 2018-11-25)
PROC: 0JQC0ZZ Repair Pelvic Region Subcutaneous Tissue and Fascia, Open Approach (ICD-10-PCS; 2018-11-25)
PROC: 0USG0ZZ Reposition Vagina, Open Approach (ICD-10-PCS; 2018-11-25)
PROC: 0US90ZZ Reposition Uterus, Open Approach (ICD-10-PCS; 2018-11-25)
PROC: 8E0W4CZ Robotic Assisted Procedure of Trunk Region, Percutaneous Endoscopic Approach (ICD-10-PCS; 2018-11-25)
PROC: 0TJB8ZZ Inspection of Bladder, Via Natural or Artificial Opening Endoscopic (ICD-10-PCS; 2018-11-25)
DX: N81.4 Uterovaginal prolapse, unspecified (principal); E03.9 Hypothyroidism, unspecified; N80.0 Endometriosis of uterus; D25.9 Leiomyoma of uterus, unspecified; E78.5 Hyperlipidemia, unspecified; G47.00 Insomnia, unspecified; Z96.659 Presence of unspecified artificial knee joint; Z98.890 Other specified postprocedural states
CPT/HCPCS: 36415; 36416; 80053; 85025; 85027; 86850; 86900; 86901; 88307; 93005; 93010; J0131; J0670; J1100; J1940; J2001; J2250; J2270; J2405; J2704; J3010; J3490; Q9968; S0028

== ENCOUNTER 2019-02-09 10:22 | Day surgery (SDC) | payer MEDICARE, OTHER ==
[2019-02-06 14:11] VITALS: BMI 32.8
[~2019-02-09 10:22] MED LIST: PROPOFOL 200 MG/20 ML VIAL ONE
[2019-02-09] MEDS ORDERED: PROPOFOL 20 ML ONE (12:47)
--- NOTE | 2019-03-05 12:41 | OP ---
DATE OF PROCEDURE: 02/09/2019 PREPROCEDURE DIAGNOSIS: Vegetation. POSTPROCEDURE DIAGNOSIS: Vegetation. PROCEDURE PERFORMED: Transesophageal echocardiography. DESCRIPTION OF PROCEDURE: The patient was consented to the procedure, discussed procedure in full detail. Conscious sedation was performed with propofol. The probe passed easily into esophagus. FINDINGS: Aortic valve was well visualized. There appears to be a mass present on the aortic valve. This appears mobile. Mild AI present. No aortic stenosis is noted. The mitral valve is free of significant vegetations. The tricuspid and pulmonic valve are also free of vegetations. 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 Job ID: [id number]
== END 2019-02-09 14:38 | disposition home or self-care (01) ==
LOC: SDC 10:22
PROVIDERS: ATTEND Internal Medicine Cardiovascular Disease
PROC: B246ZZ4 Ultrasonography of Right and Left Heart, Transesophageal (ICD-10-PCS; principal; 2019-02-09)
DX: I33.0 Acute and subacute infective endocarditis (principal); Q23.8 Other congenital malformations of aortic and mitral valves; I87.2 Venous insufficiency (chronic) (peripheral); E78.00 Pure hypercholesterolemia, unspecified; G47.00 Insomnia, unspecified; M19.90 Unspecified osteoarthritis, unspecified site; G62.9 Polyneuropathy, unspecified; E89.2 Postprocedural hypoparathyroidism; Z79.899 Other long term (current) drug therapy
CPT/HCPCS: 93312; J2704

== ENCOUNTER 2019-04-27 08:32 | Outpatient (CLI) | payer MEDICARE, OTHER ==
[2019-04-27] MEDS ORDERED: Iopamidol 370 76% 100 ML VIAL ONE (09:00)
--- NOTE | 2019-04-27 09:18 | CT ---
CT Abdomen Pelvis W Con: 04/27/2019 12:00 AM CLINICAL INFORMATION: Left lower quadrant pain for 2 months COMPARISON: None. TECHNIQUE: Multiple contiguous axial images were obtained and a CT of the abdomen and pelvis with IV contrast. Oral contrast was administered. Coronal reformats were performed. FINDINGS: Lower Chest: within normal limits. Abdomen: Liver: within normal limits. Bile Ducts: Normal caliber. Gallbladder: Surgically absent Pancreas: within normal limits. Spleen: within normal limits. Adrenals: within normal limits. Kidneys: within normal limits. Pelvis: Reproductive Organs: Status post hysterectomy. A pessary is seen in the vagina. Ureters: within normal limits. Bladder: within normal limits. Peritoneum: No ascites or free air, no fluid collection. Bowel: Normal caliber. A few scattered diverticula in the left colon. Mesentery and Retroperitoneum: No enlarged mesenteric or retroperitoneal lymph nodes. Vessels: Normal. Abdominal Wall: within normal limits. Bones: Within normal limits IMPRESSION: 1. No evidence of acute intraabdominal or pelvic abnormality. 2. Diverticulosis
== END 2019-04-27 08:33 | disposition home or self-care (01) ==
LOC: SCSCT 08:32
PROVIDERS: ATTEND Physician Assistant Medical
DX: R10.32 Left lower quadrant pain (principal); R13.19 Other dysphagia; K44.9 Diaphragmatic hernia without obstruction or gangrene
CPT/HCPCS: 74177; Q9967

== ENCOUNTER 2019-04-29 14:36 | Outpatient (CLI) | payer MEDICARE, OTHER ==
--- NOTE | 2019-04-29 16:19 | BD ---
DEXA BONE DENSITOMETRY: (Dual energy X-ray Absorptiometry) 04/29/19 HISTORY: 69-year-old white female for postmenopausal, age-related, osteoporosis screening examination. Ht. 67 inches. Wt. 210 lb. Age of menopause: 56 years. TECHNIQUE: According to the technologist, there was residual oral contrast material from CT two days ago, overla pping the lumbar spine. Therefore, rather than imaging the lumbar spine, the bilateral hips were imag ed. COMPARISON: None available. FINDINGS: The bone mineral density (BMD) is given in grams per square centimeter (g/cm2): BMD(g/cm2) T-score Z-score RIGHT HIP: Femoral neck: 0.833 -0.1 1.6 Total: 0.984 0.3 1.8 LEFT HIP: Femoral neck: 0.867 0.2 1.9 Total: 1.035 0.8 2.2 IMPRESSION: The bone mineral density of the femoral neck is normal. Fracture risk is not increased. JN R POS: OFF
--- NOTE | 2019-05-19 06:44 | MMO ---
Bilateral MAMMO Bilat Screen [facility]. CLINICAL HISTORY: Patient is 69 years old and is seen for screening. The patient has the following family history of breast cancer: mother, at age 72, malignant (generic). The patient has no personal history of cancer. VIEWS: The views performed were: bilateral craniocaudal with tomosynthesis and bilateral mediolateral oblique with tomosynthesis. FILMS COMPARED: The present examination has been compared to prior imaging studies performed at [facility], [place] on 05/01/2014, 05/13/2015, 06/12/2016 and 06/17/2017. MAMMOGRAM FINDINGS: There are scattered fibroglandular densities. Finding 1: There are benign appearing calcifications seen in both breasts. Finding 2: There is an intramammary lymph node seen in the lower-outer region of the right breast. There are no suspicious masses, suspicious calcifications, or new areas of architectural distortion. IMPRESSION: THERE IS NO MAMMOGRAPHIC EVIDENCE OF MALIGNANCY. A ROUTINE FOLLOW-UP MAMMOGRAM IN 1 YEAR IS RECOMMENDED. THE RESULTS OF THIS EXAM WERE SENT TO THE PATIENT. ACR BI-RADS Category 2 - Benign finding MAMMOGRAPHY NOTE: 1. A negative mammogram report should not delay a biopsy if a dominant of clinically suspicious mass is present. 2. Approximately 10% to 15% of breast cancers are not detected by mammography. 3. Adenosis and dense breasts may obscure an underlying neoplasm. Reported by: YAKOV BEDOYA MD Electonically Signed: [id number]
== END 2019-04-29 14:37 | disposition home or self-care (01) ==
LOC: BICMAMMO 14:36
PROVIDERS: ATTEND Family Medicine
DX: Z12.31 Encounter for screening mammogram for malignant neoplasm of breast (principal); Z13.820 Encounter for screening for osteoporosis; Z80.3 Family history of malignant neoplasm of breast
CPT/HCPCS: 77063; 77067; 77080

== ENCOUNTER 2019-12-22 08:32 | Outpatient (CLI) | payer MEDICARE, OTHER ==
--- NOTE | 2019-12-22 10:30 | MRI ---
EXAM: MRI Brain W WO Con PROVIDED CLINICAL HISTORY: Persistent migraine aura without infarction. Patient states ocular migraines for decades which have r ecently worsened and increased in frequency. COMPARISON: None FINDINGS: There are scattered punctate as well as patchy areas of increased FLAIR and T2-weighted signal intens ity seen within the periventricular and subcortical white matter which are nonspecific but most likely reflective of chronic small vessel ischemic changes. There is no evidence of an acute infarcti on. No abnormal areas of enhancement are seen after the administration of intravenous contrast. The septum pellucidum and third ventricle are in the midline. The ventricular system is normal in siz e, shape, and position. Appropriate flow voids are demonstrated in the large intracranial vessels at the base of the brain. [place] lens on the left is not visualized. Mucosal thickening is seen in each maxillary antrum and in a few ethmoidal air cells. The skull base otherwise demonstrates a normal MRI appearance. IMPRESSION: 1. No acute intracranial abnormalities demonstrated. 2. Chronic small vessel ischemic changes. 3. Mild sinus disease.
== END 2019-12-22 08:33 | disposition home or self-care (01) ==
LOC: SCSMRI 08:32
PROVIDERS: ATTEND Nurse Practitioner Acute Care
DX: G43.509 Persistent migraine aura without cerebral infarction, not intractable, without status migrainosus (principal); I67.82 Cerebral ischemia; J32.9 Chronic sinusitis, unspecified
CPT/HCPCS: 70553; 82565

== ENCOUNTER 2021-03-06 12:45 | Outpatient (CLI) | payer MEDICARE, OTHER | END 2021-03-06 12:46 | disposition home or self-care (01) | LOC: SCSMRI 12:45 | PROVIDERS: ATTEND Family Medicine | DX: M79.18 Myalgia, other site (principal); S73.101A Unspecified sprain of right hip, initial encounter; M25.451 Effusion, right hip ==

== ENCOUNTER 2022-04-17 12:32 | Outpatient (CLI) | payer MEDICARE, OTHER | END 2022-04-17 12:33 | disposition home or self-care (01) | LOC: SCSMRI 12:32 | PROVIDERS: ATTEND Nurse Practitioner Family | DX: M50.11 Cervical disc disorder with radiculopathy, high cervical region (principal) | CPT/HCPCS: 72141 ==

== ENCOUNTER 2022-06-28 13:25 | Outpatient (CLI) | payer MEDICARE, OTHER | END 2022-06-28 13:26 | disposition home or self-care (01) | LOC: SCSMRI 13:25 | PROVIDERS: ATTEND Internal Medicine | DX: M25.512 Pain in left shoulder (principal); M19.012 Primary osteoarthritis, left shoulder; R60.0 Localized edema; M25.412 Effusion, left shoulder; M75.112 Incomplete rotator cuff tear or rupture of left shoulder, not specified as traumatic ==

== ENCOUNTER 2022-07-10 11:16 | Outpatient (CLI) | payer MEDICARE, OTHER ==
[2022-07-10 16:33] LABS: ALT (SGPT) 19 U/L (8-55); AST (SGOT) 18 U/L (5-34); Albumin 4.5 g/dL (3.4-4.8); Alkaline Phosphatase 75 U/L (40-110); Anion Gap 14 mmol/L (10-20); BUN (Urea Nitrogen) 11 mg/dL (9.8-20.1); Bilirubin, Total 0.6 mg/dL (0.2-1.2); Calc. Creatinine Clearance 0 mL/min (70-130); Calcium 9.4 mg/dL (7.8-10.44); Carbon Dioxide 22 mmol/L (23-31); Chloride 92 mmol/L (98-107); Estimated GFR 76; Globulin 2.4 g/dL (2.4-3.5); Glucose 87 mg/dL (83-110); Lipase 10 U/L (8-78); Potassium 3.9 mmol/L (3.5-5.1); Protein, Total 6.9 g/dL (5.8-8.1); Sodium 124 mmol/L (136-145)
== END 2022-07-10 11:17 | disposition home or self-care (01) ==
LOC: MRI 11:16 → SCSMRI 11:17
PROVIDERS: ATTEND Internal Medicine Gastroenterology
DX: K86.2 Cyst of pancreas (principal)
CPT/HCPCS: 74183; 80053; 83690; 86301

== ENCOUNTER 2023-08-29 15:42 | Outpatient (CLI) | payer MEDICARE, OTHER | END 2023-08-29 15:43 | disposition home or self-care (01) | LOC: SCSRAD 15:42 | PROVIDERS: ATTEND Nurse Practitioner Family | DX: R05.1 Acute cough (principal) | CPT/HCPCS: 71046 ==